=== PATIENT | male | born 1960 | race Caucasian/White ===

== ENCOUNTER 2017-06-22 13:45 | Outpatient (CLI) | payer OTHER ==
[2017-06-22 15:13] LABS: Hematocrit 47.1 % (42.0-52.0); Mean Platelet Volume 9.1 fL (7.4-10.4); Red Blood Cell (RBC) Count 4.89 mill/uL (4.70-6.10); White Blood Cell (WBC) Count 9.4 thou/uL (4.8-10.8)
[2017-06-22 15:19] LABS: Prothrombin Time 13.3 SEC (12.0-14.7)
[2017-06-22 15:20] LABS: PTT 22.6 SEC (22.9-36.1)
== END 2017-06-22 13:46 | disposition home or self-care (01) ==
LOC: LABBT 13:45
PROVIDERS: ATTEND Neurological Surgery
DX: Z01.812 Encounter for preprocedural laboratory examination (principal); M47.16 Other spondylosis with myelopathy, lumbar region; M47.26 Other spondylosis with radiculopathy, lumbar region
CPT/HCPCS: 85027; 85610; 85730; 87081

== ENCOUNTER 2017-06-29 05:38 | Inpatient (IN) | payer OTHER ==
--- NOTE | 2017-06-23 11:59 | HP ---
HISTORY OF PRESENT ILLNESS: Mr. Ackerman returns to our clinic with injections with right low back alannah n and numbness in the right lateral thigh, lopez and top of the foot. He has recently had injections at L4-L5 that helped significantly, but lasted about 6-8 hours only. There was return of the same pain as before. Now there is numbness down the right leg to the later al calf and top of the foot. The right low back pain is the same, with rare pain in the left low ba ck. He is tired of the pain and has been through injections, therapy, medications, activity modific ations that has not given him full relief. MEDICAL HISTORY: Low back pain. PHYSICAL EXAMINATION: HEENT: Normocephalic, atraumatic. Hearing intact. Moist mucous membranes. Trachea midline. No m asses noted. Eyes: Pupils are equal and reactive to light. Extraocular muscles are intact. Scler ae is white, nonicteric. CARDIOVASCULAR: The patient has no distal cyanosis or clubbing. Regular rate and rhythm. RESPIRATORY: The patient is a bilateral symmetric chest rise. Appears to be no shortness breath. NEUROLOGIC: Gait and station are normal. Motor exam; normal strength in the iliopsoas, quadriceps, hamstrings, anterior tibialis, extensor hallucis longus, gastroc and toe flexors. The sensory exam ; loss of sensation in the right. Reflex exam are normal in the patellar and Achilles. No Babinski sign. SPINE: Tender on the L5-S1 facet. The patient has had CT at [facility], MRI and x-rays at [facility]. MRI shows an L4-L5 disk with right lateral recess stenosis and some foraminal disease at L5 root. X -rays; there is no instability. CT shows pseudoarthrosis, L5 transverse process on sacrum on the right side. Lucency in the L5 ku sverse process, no fracture. ASSESSMENT: 1. Spondylolisthesis of the lumbar region without myelopathy or radiculopathy. 2. Lumbar radiculopathy. PLAN: Dr. Fonseca offered a redo L4-L5 laminectomy with extension of laminectomy L5-S1 and TLIF L 5-S1. Informed consent was discussed. We discussed the indication, risks, benefits, expected resul ts from surgery. The risks discussed included, but were not limited to bleeding, infection, CSF ritu k, nerve damage, weakness, incontinence, cauda equina injury, arachnoiditis, paralysis, ventilator d ependence, wheelchair dependence, loss of vision, hardware complications, pulmonary complications of anesthesia or . Long-term complications discussed included, but were not limited to degenerat ion of surrounding disk and future surgery. He understands the risks and is willing to proceed with the surgery.
[2017-06-29] MEDS ORDERED: Sodium Chloride 0.9% 20 ML ONE (06:17)
[2017-06-29] MEDS ORDERED: Bupivacaine/Epinephrine 0.5% 10 ML VIAL ONE (06:17)
[2017-06-29] MEDS ORDERED: Thrombin 5000 UNITS/5 ML VIAL ONE ×2 (06:17→10:05)
[2017-06-29] MEDS ORDERED: Midazolam HCl 2 mg/2 ml Vial ONE (07:04)
[2017-06-29] MEDS ORDERED: Fentanyl 100 MCG/2 ML VIAL ONE ×3 (07:05→14:07)
[2017-06-29] MEDS ORDERED: Lidocaine 1% PF 5 ML VIAL ONE (07:12)
[2017-06-29] MEDS ORDERED: Succinylcholine Chloride 20 MG/ML 10 ml SYRINGE FS ONE (07:12)
[2017-06-29] MEDS ORDERED: Metoclopramide HCl 10 MG/2 ML VIAL ONE (07:12)
[2017-06-29] MEDS ORDERED: Dexamethasone 20 MG/5 ML VIAL ONE (07:12)
[2017-06-29] MEDS ORDERED: Ondansetron HCl/PF 4 MG/2 ML Vial ONE (07:12)
[2017-06-29] MEDS ORDERED: Ketorolac Tromethamine 30 MG/ML VIAL ONE (07:12)
[2017-06-29] MEDS ORDERED: Propofol 200 MG/20 ML VIAL ONE (07:12)
[2017-06-29] MEDS ORDERED: Glycopyrrolate 0.2 MG/ML 5 ML SYRINGE ONE (07:12)
[2017-06-29] MEDS ORDERED: Sodium Chloride 0.9% 10 ML ONE (08:35)
[2017-06-29] MEDS ORDERED: Morphine Sulfate 2 MG/ML SYRINGE SLOW IVP PRN (13:37)
[2017-06-29] MEDS ORDERED: Acetaminophen/Codeine 30-300mg Tablet PO PRN ×2 (13:37)
[2017-06-29] MEDS ORDERED: Milk Of Magnesia 30 ML UDCUP PO PRN (13:37)
[2017-06-29] MEDS ORDERED: Ondansetron HCl/PF 4 MG/2 ML Vial IVP PRN (13:37)
--- NOTE | 2017-06-29 13:40 | OP ---
DATE OF PROCEDURE: 06/29/2017 SURGEON: Jessica Fonseca M.D. SERVICE REPRESENTATIVE: Kevin Manriquez PA-C. PREOPERATIVE INDICATION: Treat pain, prevent neurological deterioration. PREOPERATIVE DIAGNOSES: Prior lumbar surgery, right and left lumbar radiculopathies, painful right L5 on S1 pseudoarthrosis. POSTOPERATIVE DIAGNOSES: Prior lumbar surgery, right and left lumbar radiculopathies, painful right L5 on S1 pseudoarthrosis. PROCEDURES PERFORMED: Reopening lumbar incision, repeat bilateral laminectomy, medial facetectomy, foraminotomy at L4-L5, L5-S1, operating microscope and scar tissue dissection, transforaminal lumbar interbody arthrodesis L5-S1, placement of intervertebral biomechanical device L5-S1, local morseliz ed autograft, morselized Allograft, pedicle screw and zeke instrumentation L5-S1, posterolateral arth rodesis L5-S1. PREOPERATIVE MEDICATION: Ancef 2 grams IV. DRAIN NUMBER: One. DRAIN TYPE: 10 Swiss Michael. OPERATIVE DICTATION: The patient was brought to the operating room. General endotracheal anesthesi a was induced. The patient was positioned prone on the Randall frame with his chest and hips suppor moreno by the appropriate attachments for the Randall frame. Lateral fluoro radiograph was used to ens ure that the previous incision would give us access to the L4, L5 and S1 segments of the lumbosacral spine. The lumbar skin was sterilely prepped and draped. We opened his previous incision with a 1 0 blade knife and controlled bleeding with bipolar and monopolar cautery. We used monopolar cautery to dissect through the subcutaneous tissues to the thoracodorsal fascia. We incised the fascia in the midline and reflected the paraspinal muscles off the spinous process and lamina of L4, L5, and S 1. Lateral fluoro radiograph confirmed the levels upon which we were operating. This dissection in volved reflection of scar tissue in the area of his previous operations. We carried our dissection over the facet joints at L4-L5 and L5-S1 to expose the transverse process of L5 on both sides as wel l as the sacral ala bilaterally. We turned our attention to decompression. We carefully performed a laminectomy at L4-L5 and L5-S1. We widened our laminectomy defect using Ke rrison rongeurs. We brought the operating microscope into the field. Under microscopic magnificati on using microsurgical techniques, we carefully peeled the scar tissue from the lateral confines of the spinal canal loosening attachments between the dura and bone at L4-L5 and L5-S1. We continued d issecting around the thecal sac until we could easily visualize L5 and S1 nerve roots as well as the common thecal sac and decompress these to the point that they were freely mobile across the L4-L5 a nd L5-S1 interspaces. When the decompression secured, we turned our attention to arthrodesis. We widened our facetectomy on the right at L5-S1, giving us access through the foramen into the inte rvertebral disk space. We incised the disk space with an 11 blade knife and removed disk contents u sing curettes and rongeurs. A rectangular shaped bone rasp was used to prepare the endplates for gr afting and measured the height of the interspace. This measured 8 mm. We brought an 8 mm PEEK tai t into the field. We loaded this with demineralized bone matrix and morselized autograft. The auto graft was meticulously prepared on the back table by removing soft tissue attachments from our vanessa ectomy bone, and that bone was then morselized into the demineralized bone matrix as our fusion subs trate. We advanced 8 mm PEEK graft into the interspace under radiographic guidance to the appropria te depth. We then turned our attention to pedicle screw instrumentation. Using bony anatomic landm arks, palpation of the medial portion of the pedicles, and a lateral fluoro radiograph as a guide, kory lennon chose entry points for pedicle screws. We advanced the entry points through the pedicles into the vertebral bodies at L5 and at S1 bilaterally. We tapped the trajectories and then placed 6.5 mm di ameter screws. With the screws in place, we generated a 360 degree image set with our assistance C- arm. The left-sided L5 screw was slightly prominent anterolaterally, given the patient's body habit us, this is the best trajectory we could hope for and we elected to leave it in place. We irrigated copiously with bacitracin irrigation. We used a high-speed drill to decorticate the transverse pro cesses of L5 bilaterally and the sacral ala. Over the decorticated bone, we left demineralized bone matrix and morselized autograft as our posterolateral fusion substrate. We then placed rods in the screw heads and tightened caps over the rods. Using rudnks-pzlfcut-basfrq mechanism, we ensured ad equate tightness. We applied gentle compression across the interspace to keep our interbody device in place during the tightening process. We tunneled a drain inferiorly through a separate stab inci marta. We treated the wound with vancomycin powder and we closed the wound in anatomic layers over t he drain. This was a clean case and no contamination.
[2017-06-29] MEDS ORDERED: Promethazine HCl 25 MG/ML VIAL ONE (14:07)
[2017-06-29] MEDS: Sodium Chloride 0.9% 1,000 ML IV SCH (16:29)
[2017-06-30] MEDS: Sodium Chloride 0.9% 1,000 ML IV SCH ×2 (05:28→11:08)
--- NOTE | 2017-06-30 07:10 | PRG ---
DATE OF SERVICE: 06/30/2017 Mr. Ackerman is 1 day out from decompression fusion in the lumbar spine. We got good decompression fro m L4 through the L5 and S1 nerve roots. All scar tissue was dissected. The pseudoarthrosis has bee n causing a significant amount of pain between the transverse processes of L5 and the sacrum is now fixed. Mr. Ackerman will benefit from physical therapy while here in the hospital and we will keep his drain i n until it dips below our threshold for output so that we can remove it safely. If the drain tapers off significantly today and he is safe for activities of daily living, we can think about discharge in the afternoon.
--- NOTE | 2017-06-30 07:44 | PRG ---
DATE OF SERVICE: 06/30/2017 Mr. Ackerman is a 57-year-old male who is status post 1 day out from a lumbar decompression and fusion. There were no acute events overnight and this morning he is doing well, in no acute distress, sitt ing up. His vital signs have been stable this morning and there are no new neurologic deficits on e xam. He states that the pain in his legs has completely resolved. He still has a significant amoun t of drainage from his lumbar drain and when that tapers off to about 5 mL per hour for a 6 hour per iod the drain could be discontinued. Until that time we him on antibiotics for infection prophylaxi s. We want him to work with physical therapy and ambulate as much as possible today. He can tolera te regular diet and his pain is well controlled pain medication. If there are any further questions, please feel free to contact Neurosurgery.
[2017-06-30] MEDS: Cyclobenzaprine 10 MG TAB PO PRN ×2 (11:12→20:07)
--- NOTE | 2017-07-01 06:30 | PRG ---
DATE OF SERVICE: 07/01/2017 Mr. Ackerman walked in the hallways yesterday about 3 times. He was able make it around the entire loo p. He gets tired after his walk, but he is feeling better than he did before surgery. Drain is ta pered off nicely. My plan is to remove the drain this morning. Continue to work on ambulation and have him discharged from the hospital by lunch time. Follow up arrangements are being made. We went over activity res trictions and wound care.
[2017-07-01 11:24] LABS: Troponin I Less than 0.010 ng/mL (< 0.028)
--- NOTE | 2017-07-01 13:07 | CT ---
HEAD CT NONCONTRAST: INDICATION: Unresponsive episode, possible seizure. FINDINGS: Ventricular system is normal in size. Septum pellucidum and third ventricle are midline. There is no intracranial hemorrhage, mass effect, or midline shift. IMPRESSION: There are no acute intracranial abnormalities. POS: [facility]
[2017-07-01 15:36] LABS: #Eosinphils 0.2 thou/uL (0.0-0.7); #Lymphocytes 2.2 thou/uL (1.20-3.40); #Monocytes 1.2 thou/uL (0.11-0.59); #Neutrophils 8.7 thou/uL (1.40-6.50); %Basophils 0.4 % (0.0-1.0); %Eosinophils 1.3 % (0.0-10.0); %Monocytes 9.5 % (0.0-10.0); Hematocrit 37.8 % (42.0-52.0); Mean Platelet Volume 7.6 fL (7.4-10.4); Red Blood Cell (RBC) Count 3.89 mill/uL (4.70-6.10); White Blood Cell (WBC) Count 12.3 thou/uL (4.8-10.8)
[2017-07-01 15:57] LABS: Anion Gap 11 mmol/L (10-20); BUN (Urea Nitrogen) 9 mg/dL (8.4-25.7); Calc. Creatinine Clearance 0 mL/min (70-130); Calcium 9.1 mg/dL (7.8-10.44); Carbon Dioxide 27 mmol/L (22-29); Chloride 102 mmol/L (98-107); Estimated GFR-MDRD Greater than 90
--- NOTE | 2017-07-01 16:00 | PRG ---
NEUROSURGERY PROGRESS NOTE DATE OF SERVICE: 07/01/2017 SUBJECTIVE: I was called earlier this afternoon that Mr. Ackerman had a syncopal episode. This mornin g, he sat out as his drain pulled and felt lightheadedness. The next thing he remembers there were 20 people in his room checking his blood pressure. He came back quickly. Nursing staff reports howard t he had some bilateral shaking motions that were symmetric in both upper extremities. This is imme diately following the administration of pain medication. IMAGING DATA: EKGs have been done, CT scan of the brain and a consultation was placed to the medica l service. Troponins have been ordered as well. I reviewed the imaging results and the CT brain is normal. The EKG looks relatively normal with no ST changes, some left axis deviation. The cardiac enzymes are negative. ASSESSMENT AND PLAN: We will keep Mr. Ackerman in telemetry overnight. We will watch him until tomorr ow and if the medical team agrees that it is safe to discharge, we will do so then. I will get a chemistry panel and a CBC. I will place a peripheral IV as his prior IV was pulled out accidentally. He gone over home going activity restrictions and wound care and followup arrangemen ts. I anticipate discharge tomorrow.
--- NOTE | 2017-07-01 16:41 | PDOC.PN ---
- Subjective Encounter Start Date: 07/01/17 Encounter Start Time: 16:39 Subjective: post op, fainted sitting in bed - Objective MAR Reviewed: Yes Vital Signs & Weight: Vital Signs (12 hours) Temp Pulse Pulse Resp Resp BP BP 07/01/17 10:10 75 18 103/67 07/01/17 09:02 98.7 F 76 16 07/01/17 07:30 98.7 F 76 16 103/67 Pulse Ox Pulse Ox 07/01/17 10:10 97 07/01/17 09:02 07/01/17 07:30 94 L Weight Weight 7.408 oz I&O: 06/30/17 07/01/17 07/02/17 06:59 06:59 06:59 Intake Total 1200 2160 Output Total 670 260 Balance 530 1900 Result Diagrams: 07/01/17 15:29 07/01/17 15:29 Additional Labs: Accuchecks 07/01/17 10:14 POC Glucose 109 Radiology Reviewed by me: Yes (RSR, IVC defect) Phys Exam - Physical Examination Constitutional: NAD Neck: no JVD Respiratory: clear to auscultation bilateral Cardiovascular: RRR, no significant murmur, gallop Gastrointestinal: soft, non-tender, positive bowel sounds Musculoskeletal: no edema Dx/Plan (1) Post-operative state Code(s): Z98.890 - OTHER SPECIFIED POSTPROCEDURAL STATES Status: Acute (2) Syncope Code(s): R55 - SYNCOPE AND COLLAPSE Status: Acute Qualifiers: Syncope type: vasovagal syncope Qualified Code(s): R55 - Syncope and collapse (3) Intraventricular conduction defect Code(s): I45.4 - NONSPECIFIC INTRAVENTRICULAR BLOCK Status: Acute - Plan no hx of heart disease, etc -: troponin x 3 -: obtain preop EKG, rpt EKG in am, echo. keep in monitored bed overnite * .
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
[2017-07-01 18:36] LABS: Troponin I Less than 0.010 ng/mL (< 0.028)
[2017-07-01] MEDS: Ibuprofen 200 MG TAB PO PRN (19:28)
[2017-07-01 21:18] LABS: Troponin I Less than 0.010 ng/mL (< 0.028)
[2017-07-01 22:01] LABS: Bilirubin Negative (Negative); Blood, Urine Negative (Negative); Glucose, Urine (Dipstick) Negative (Negative); Ketone, Urine Trace mg/dL (Negative); Nitrite Negative (Negative); Protein, Urine (Dipstick) Negative (Neg-Trace)
--- NOTE | 2017-07-02 06:20 | EKG ---
Test Reason : POST CODE GREEN Blood Pressure : / mmHG Vent. Rate : 075 BPM Atrial Rate : 075 BPM P-R Int : 170 ms QRS Dur : 132 ms QT Int : 382 ms P-R-T Axes : 028 -51 079 degrees QTc Int : 426 ms Normal sinus rhythm Left axis deviation Left Anterior Fascicular Block Left ventricular hypertrophy with QRS widening and repolarization abnormality Abnormal ECG No previous ECGs available Confirmed by ELIZABETH VELEZ ([id number]) on 07/02/2017 6:20:21 AM Referred By: ELIO Confirmed By:ELIZABETH VELEZ
[2017-07-02] MEDS ORDERED: traMADol HCl 50 MG TAB PO PRN ×2 (07:01)
[2017-07-02 10:01] LABS: #Eosinphils 0.1 thou/uL (0.0-0.7); #Lymphocytes 1.3 thou/uL (1.20-3.40); #Monocytes 1.4 thou/uL (0.11-0.59); #Neutrophils 11.2 thou/uL (1.40-6.50); %Basophils 0.1 % (0.0-1.0); %Eosinophils 0.5 % (0.0-10.0); %Lymphocytes 9.3 % (21.0-51.0); %Monocytes 9.7 % (0.0-10.0); Hematocrit 38.9 % (42.0-52.0); Mean Platelet Volume 7.9 fL (7.4-10.4); Red Blood Cell (RBC) Count 4.03 mill/uL (4.70-6.10)
[2017-07-02] MEDS: Ibuprofen 200 MG TAB PO PRN (10:08)
--- NOTE | 2017-07-02 10:21 | RAD ---
1 VIEW CHEST: Date: 07/02/17 HISTORY: Postoperative fever. COMPARISON: None. FINDINGS: Normal cardiac silhouette. Pulmonary vessels and hilum are normal. Costophrenic angles are clear. Li near opacity in the right mid lung may represent subsegmental atelectasis. No consolidation or mass. No pneumothorax. Internal fixation hardware in the proximal right humerus is incompletely evaluated . IMPRESSION: Probable scar or atelectasis in the right mid lung. POS: [facility]
[2017-07-02 10:22] LABS: Anion Gap 12 mmol/L (10-20); BUN (Urea Nitrogen) 11 mg/dL (8.4-25.7); Calc. Creatinine Clearance 208 mL/min (70-130); Calcium 9.3 mg/dL (7.8-10.44); Carbon Dioxide 23 mmol/L (22-29); Chloride 101 mmol/L (98-107); Estimated GFR-MDRD Greater than 90
--- NOTE | 2017-07-02 11:22 | PDOC.PN ---
- Subjective Encounter Start Date: 07/02/17 Encounter Start Time: 11:20 Subjective: feels better. no chest pain/SOB/Cough/dysuria/diarrhea -: some soreness at surgical site - Objective MAR Reviewed: Yes Vital Signs & Weight: Vital Signs (12 hours) Temp Pulse Resp BP BP BP Pulse Ox 07/02/17 07:32 100.5 F H 95 18 94 L 07/02/17 07:30 100.5 F H 95 18 117/68 94 L 07/02/17 04:20 98.2 F 84 18 136/68 95 07/02/17 00:45 98.3 F 80 16 120/68 97 Weight Weight 299 lb I&O: 07/01/17 07/02/17 07/03/17 06:59 06:59 06:59 Intake Total 2160 720 Output Total 260 750 Balance 1900 -30 Result Diagrams: 07/02/17 09:52 07/02/17 09:52 Additional Labs: Microbiology 06/22/17 15:06 Mrsa Scrn Axilla,Groin,Nares Nasal Screen MRSA/MSSA (ROBERT) - Final 06/22/17 15:06 Mrsa Scrn Axilla,Groin,Nares MRSA Screen - Final Negative--No MRSA Colonization Negative--No MRSA Colonization Negative--No MRSA Colonization 07/01/17 18:42 Venous blood - Right Arm Blood Culture - Preliminary Specimen has been received and culture in progress. No Growth to date. 07/01/17 18:42 Venous blood - Left Arm Blood Culture - Preliminary Specimen has been received and culture in progress. No Growth to date. Radiology Reviewed by me: Yes (CXr-atelectasis) Phys Exam - Physical Examination Constitutional: NAD HEENT: PERRLA, moist MMs, sclera anicteric, oral pharynx no lesions Neck: no nodes, no JVD, supple, full ROM Respiratory: no wheezing, no rales, no rhonchi, clear to auscultation bilateral Cardiovascular: RRR, no significant murmur Gastrointestinal: soft, non-tender, no distention, positive bowel sounds Musculoskeletal: no edema, pulses present Neurological: non-focal, normal sensation, moves all 4 limbs Psychiatric: normal affect, A&O x 3 Skin: no rash Dx/Plan (1) Fever Code(s): R50.9 - FEVER, UNSPECIFIED Status: Acute Comment: josef atelectasis (2) Post-operative state Code(s): Z98.890 - OTHER SPECIFIED POSTPROCEDURAL STATES Status: Acute Comment: s/p Lumbar laminectomy (3) Syncope Code(s): R55 - SYNCOPE AND COLLAPSE Status: Acute Qualifiers: Syncope type: vasovagal syncope Qualified Code(s): R55 - Syncope and collapse Comment: josef vaso-vagal - Plan DVT proph w/SCDs blood cx negative so far. low grade fever josef d/t atelectasis. -: CXR clear. UA clear. asymptomatic.OK to DC from IM stand point -: discussed w pt. will presribe Keflex empirically as he received Ancef inpt -: F/U w PCP.cont IS.F/U NS * . Review of Systems - Review of Systems Constitutional: negative: Fever, Chills, Sweats, Weakness, Malaise, Other Respiratory: negative: Cough, Dry, Shortness of Breath, Hemoptysis, SOB with Excertion, Pleuritic Pain, Sputum, Wheezing Cardiovascular: negative: Chest Pain, Palpitations, Orthopnea, Paroxysmal Noc. Dyspnea, Edema, Light Headedness, Other Gastrointestinal: negative: Nausea, Vomiting, Abdominal Pain, Diarrhea, Constipation, Melena, Hematochezia, Other Genitourinary: negative: Dysuria, Frequency, Incontinence, Hematuria, Retention , Other Musculoskeletal: negative: Neck Pain, Shoulder Pain, Arm Pain, Back Pain, Hand Pain, Leg Pain, Foot Pain, Other Neurological: negative: Weakness, Numbness, Incoordination, Change in Speech, Confusion, Seizures, Other - Medications/Allergies Allergies/Adverse Reactions: Allergies Allergy/AdvReac Type Severity Reaction Status Date / Time hydrocodone Allergy RESTLESSNESS, Verified 06/22/17 14:22 HYPER Medications: Current Medications Cefazolin Sodium (Ancef) 2 gm SLOW IVP Q8H EDUAR Stop: 07/02/17 13:46 Last Admin: 07/02/17 05:40 Dose: 2 gm Cyclobenzaprine HCl (Flexeril) 10 mg PO Q8H PRN PRN Reason: Muscle Spasm Last Admin: 06/30/17 11:12 Dose: 10 mg Ibuprofen (Motrin) 400 mg PO Q6H PRN PRN Reason: FEVER/PAIN Last Admin: 07/02/17 10:08 Dose: 400 mg Magnesium Hydroxide (Milk Of Magnesium) 30 ml PO Q12H PRN PRN Reason: Constipation Morphine Sulfate (Morphine Sulfate) 2 mg SLOW IVP Q1H PRN PRN Reason: Moderate Breakthrough Pain Morphine Sulfate (Morphine Sulfate) 4 mg SLOW IVP Q1H PRN PRN Reason: Severe Breakthrough Pain Last Admin: 07/02/17 10:09 Dose: 4 mg Ondansetron HCl (Zofran) 4 mg IVP Q6H PRN PRN Reason: Nausea Pantoprazole Sodium (Protonix) 40 mg PO 2100 EDUAR Last Admin: 07/01/17 20:40 Dose: 40 mg Sodium Chloride (Flush - Normal Saline) 10 ml IVF PRN PRN PRN Reason: Saline Flush Last Admin: 07/02/17 05:40 Dose: 10 ml Tramadol HCl (Ultram) 50 mg PO Q4H PRN PRN Reason: Mild Pain (1-3) Tramadol HCl (Ultram) 100 mg PO Q4H PRN PRN Reason: Moderate Pain (4-6)
[2017-07-02 12:21] LABS: ALT (SGPT) 28 U/L (8-55); AST (SGOT) 31 U/L (5-34); Alkaline Phosphatase 49 U/L (40-150); Bilirubin, Total 1.9 mg/dL (0.2-1.2); Globulin 3.4 g/dL (2.4-3.5); Protein, Total 7.1 g/dL (6.0-8.3)
[2017-07-02 12:58] VITALS: BP 120/63; TEMP 98.5
--- NOTE | 2017-07-02 14:57 | DIS ---
Mr. Ackerman was admitted to [facility] on 06/29/[address] Fonseca in the postoperative pe riod following lumbar laminectomy and TLIF. ADMITTING DIAGNOSIS: Lumbar fusion. DISCHARGE DIAGNOSIS: Lumbar fusion. HOSPITAL COURSE: Mr. Ackerman's hospital course was complicated only by a syncopal episode and Code Gr een after impending discharge yesterday. Workup both cardiac and systemic yielded no significant re sults and the patient returned to baseline. He tolerated pain rather well with only IV morphine rar pooja. He proceeded to ambulate well and was ultimately discharged on 07/02/2017 in stable condition with outpatient follow up planned. Home medications sent were Tolvin and Keflex.
--- NOTE | 2017-07-04 17:49 | EKG ---
Test Reason : Blood Pressure : / mmHG Vent. Rate : 096 BPM Atrial Rate : 096 BPM P-R Int : 166 ms QRS Dur : 126 ms QT Int : 348 ms P-R-T Axes : 048 -53 082 degrees QTc Int : 439 ms Sinus rhythm with frequent Premature ventricular complexes Left axis deviation Left ventricular hypertrophy with QRS widening and repolarization abnormality Abnormal ECG When compared with ECG of 01-JUL-2017 10:40, Premature ventricular complexes are now Present Confirmed by ELIZABETH VELEZ ([id number]) on 07/04/2017 5:48:42 PM Referred By: CRYSTAL Confirmed By:ELIZABETH VELEZ
== END 2017-07-02 12:56 | disposition home or self-care (01) | DRG 460 ==
LOC: SURG A 05:38 → SURG B 14:54 → 2NO 07-01 11:09
PROVIDERS: ADMIT Neurological Surgery; ATTEND Neurological Surgery
PROC: 01NB0ZZ Release Lumbar Nerve, Open Approach (ICD-10-PCS; principal; 2017-06-29)
PROC: 0SG30AJ Fusion of Lumbosacral Joint with Interbody Fusion Device, Posterior Approach, Anterior Column, Open Approach (ICD-10-PCS; 2017-06-29)
DX: M43.16 Spondylolisthesis, lumbar region (principal); J98.11 Atelectasis; R55 Syncope and collapse; M54.16 Radiculopathy, lumbar region; I45.4 Nonspecific intraventricular block; Z87.891 Personal history of nicotine dependence
CPT/HCPCS: 36415; 36416; 70450; 71010; 76001; 80048; 80053; 81003; 82553; 84484; 85025; 87040; 87086; 93005; 93010; 93306; A4216; C1713; C1768; G8978-GP-CL; G8979-GP-CJ; J0131; J1100; J1885; J2001; J2250; J2270; J2405; J2550; J2704; J2765; J3010; J3370; J3490

== ENCOUNTER 2017-08-24 13:17 | Outpatient (CLI) | payer OTHER ==
--- NOTE | 2017-08-24 16:56 | RAD ---
LUMBAR SPINE: 08/24/17 Two views. HISTORY: Postop followup. COMPARISON: 11/05/16. Pedicle screws now transfix L5-S1 level. Posterior alignment appears normally maintained. There is lo ss of disc space at L5-S1. Osteophytes at L4-5 are again noted. Mild osteophytes at the other levels again noted. Facet hypertrophy. IMPRESSION: Degenerative and postoperative changes of the lumbar spine as described. POS: SCOTT
== END 2017-08-24 13:18 | disposition home or self-care (01) ==
LOC: TBSIIMAG 13:17
PROVIDERS: ATTEND Neurological Surgery
DX: M47.26 Other spondylosis with radiculopathy, lumbar region (principal)
CPT/HCPCS: 72100

== ENCOUNTER 2017-10-12 15:51 | Emergency (ER) | payer OTHER ==
[2017-10-12] MEDS ORDERED: Ketorolac Tromethamine 60 MG/2 ML VIAL ONE (17:41)
[2017-10-12] MEDS ORDERED: Diazepam 5 MG TAB ONE (17:54)
== END 2017-10-12 18:10 | disposition home or self-care (01) ==
LOC: ERS 15:51
DX: M54.5 Low back pain (principal); K21.9 Gastro-esophageal reflux disease without esophagitis; Z79.899 Other long term (current) drug therapy
CPT/HCPCS: 96372; J1885

== ENCOUNTER 2017-10-20 16:14 | Outpatient (CLI) | payer OTHER | END 2017-10-20 16:15 | disposition home or self-care (01) | LOC: BICRAD 16:14 | PROVIDERS: ATTEND Neurological Surgery | DX: M54.5 Low back pain (principal); M47.816 Spondylosis without myelopathy or radiculopathy, lumbar region; Z98.890 Other specified postprocedural states; M50.021 Cervical disc disorder at C4-C5 level with myelopathy; M50.023 Cervical disc disorder at C6-C7 level with myelopathy; M99.51 Intervertebral disc stenosis of neural canal of cervical region | CPT/HCPCS: 72100 ==

== ENCOUNTER 2017-11-02 09:17 | Outpatient (CLI) | payer OTHER | END 2017-11-02 09:18 | disposition home or self-care (01) | LOC: BICCT 09:17 | PROVIDERS: ATTEND Neurological Surgery | DX: M43.06 Spondylolysis, lumbar region (principal); M48.061 Spinal stenosis, lumbar region without neurogenic claudication; Z98.890 Other specified postprocedural states | CPT/HCPCS: 72100; 72131 ==

== ENCOUNTER 2018-05-23 16:41 | Outpatient (CLI) | payer OTHER ==
[2018-05-23 17:30] LABS: #Basophils 0.1 thou/uL (0.0-0.2); #Eosinphils 0.2 thou/uL (0.0-0.7); #Lymphocytes 2.5 thou/uL (1.20-3.40); #Monocytes 0.8 thou/uL (0.11-0.59); %Basophils 0.7 % (0.0-1.0); %Eosinophils 1.8 % (0.0-10.0); %Lymphocytes 23.7 % (21.0-51.0); %Monocytes 7.2 % (0.0-10.0); %Neutrophils 66.6 % (42.0-75.0); Hemoglobin 15.4 g/dL (14.0-18.0); Mean Corpuscular HGB CONC 34.9 g/dL (32.0-36.0); Mean Corpuscular Hemoglobin 32.7 pg (27.0-31.0); Mean Corpuscular Volume 93.7 fL (78.0-98.0); Mean Platelet Volume 7.5 fL (7.4-10.4); Platelet Count 174 thou/uL (130-400); RBC Distribution Width 12.5 % (11.5-14.5); Red Blood Cell (RBC) Count 4.71 mill/uL (4.70-6.10); White Blood Cell (WBC) Count 10.5 thou/uL (4.8-10.8)
[2018-05-23 17:49] LABS: Anion Gap 15 mmol/L (10-20); BUN (Urea Nitrogen) 12 mg/dL (8.4-25.7); Calc. Creatinine Clearance 0 mL/min (70-130); Calcium 9.8 mg/dL (7.8-10.44); Carbon Dioxide 21 mmol/L (22-29); Chloride 108 mmol/L (98-107); Estimated GFR-MDRD Greater than 90; Glucose 92 mg/dL (70-105); Potassium 4.4 mmol/L (3.5-5.1); Sodium 140 mmol/L (136-145)
--- NOTE | 2018-05-26 16:32 | EKG ---
Test Reason : Blood Pressure : / mmHG Vent. Rate : 066 BPM Atrial Rate : 066 BPM P-R Int : 174 ms QRS Dur : 128 ms QT Int : 408 ms P-R-T Axes : 024 -51 -04 degrees QTc Int : 427 ms Normal sinus rhythm Left ventricular hypertrophy with QRS widening Abnormal ECG Confirmed by DELFINO SCHWARTZ ([id number]) on 05/26/2018 4:31:57 PM Referred By: DUC Confirmed By:DELFINO SCHWARTZ
== END 2018-05-23 16:42 | disposition home or self-care (01) ==
LOC: LABBT 16:41
PROVIDERS: ATTEND Specialist
DX: Z01.818 Encounter for other preprocedural examination (principal); K42.9 Umbilical hernia without obstruction or gangrene
CPT/HCPCS: 80048; 85025; 93005; 93010

== ENCOUNTER 2018-05-27 05:55 | Day surgery (SDC) | payer OTHER ==
[2018-05-23 16:47] VITALS: BMI 37.3
--- NOTE | 2018-05-24 12:12 | HP ---
HISTORY OF PRESENT ILLNESS: David Ackerman is a 58-year-old male, who works in the . He has umb ilical hernia that is bothersome to him. Plan is to repair that using mesh robotically as an outpati ent. He understands the risks and benefits of surgery and consents. ALLERGIES: None. TOBACCO: None. ALCOHOL: Socially. PAST SURGICAL HISTORY: Lumbar surgery x4, 2017 fusion, left arm surgery. PAST MEDICAL HISTORY: Noncontributory. ALLERGIES: None. REVIEW OF SYSTEMS: A 10-point noncontributory. FAMILY HISTORY: Noncontributory. PHYSICAL EXAMINATION: VITAL SIGNS: 283 pounds, 6 feet 1 inch, 119/88, 100, 99. HEAD, EYES, EARS, NOSE, AND THROAT: Unremarkable. LUNGS: Clear to auscultation. CARDIAC: Regular rate and rhythm without murmur, rub, or gallop. ABDOMEN: Soft. Umbilical hernia present, reducible. EXTREMITIES: Unremarkable. No ankle edema. Good pulses. NEUROLOGICAL: Intact. No focal deficits. ASSESSMENT AND PLAN: Umbilical hernia. Plan robotic mesh repair as an outpatient. Risks and benefi ts discussed. He consents.
[2018-05-27] MEDS ORDERED: CEFAZOLIN/Water 2 GM/20 ML SYRINGE ONE (06:24)
[2018-05-27] MEDS ORDERED: Ketorolac Tromethamine 30 MG/ML VIAL ONE (06:24)
[2018-05-27] MEDS ORDERED: Fentanyl 100 MCG/2 ML VIAL ONE (07:12)
[2018-05-27] MEDS ORDERED: Promethazine HCl 25 MG/ML VIAL ONE (07:12)
[2018-05-27] MEDS ORDERED: Midazolam HCl 2 mg/2 ml Vial ONE (07:12)
[2018-05-27] MEDS ORDERED: Bupivacaine HCl 0.5%/Epinephrine 1:200,000/PF 30 ml Vial ONE (08:00)
[2018-05-27] MEDS ORDERED: Bupivacaine/Epinephrine 0.25% 30 ML VIAL ONE (08:18)
[2018-05-27] MEDS ORDERED: ePHEDrine/0.9% NaCl/PF SYRINGE 50 mg/10 ml ONE (11:45)
[2018-05-27] MEDS ORDERED: Dexamethasone 20 MG/5 ML VIAL ONE (11:45)
[2018-05-27] MEDS ORDERED: Ondansetron HCl/PF 4 MG/2 ML Vial ONE (11:45)
[2018-05-27] MEDS ORDERED: PROPOFOL 200 MG/20 ML VIAL ONE (11:45)
[2018-05-27] MEDS ORDERED: Lidocaine 1% PF 5 ML VIAL ONE (11:45)
[2018-05-27] MEDS ORDERED: Glycopyrrolate 0.2 MG/ML 5 ML SYRINGE ONE (11:45)
[2018-05-27] MEDS ORDERED: PHENYLEPHRINE-NS 100 MCG/ML 10 ML SYRINGE ONE (11:45)
[2018-05-27] MEDS ORDERED: HYDROcodone/Acetaminophen 5/325 mg Tablet ONE (12:29)
--- NOTE | 2018-05-31 11:44 | OP ---
DATE OF PROCEDURE: 05/27/2018 PREOPERATIVE DIAGNOSIS: Umbilical hernia. POSTOPERATIVE DIAGNOSIS: Umbilical hernia. PROCEDURE PERFORMED: Robotic umbilical hernia repair with mesh. ANESTHESIA: General. Local 0.5% Marcaine with epinephrine, 30 mL. PROCEDURE IN DETAIL: Patient taken to the operating room under general anesthesia in supine position , incisions were made in the upper abdomen, midline and pneumoperitoneum to 15 mmHg obtained with the Veress needle placing it with an 11 port with the balloon stay. Laparoscope introduced and lateral subcostal incision made. An 8 mm ports placed. Robot was docked and instruments inserted and roboti c, umbilical hernia repair undertaken by freeing the hernia sac from the surrounding tissues, freeing the fascia, freeing the falciform ligament superiorly, skeletonizing the fascia and then reducing pn eumoperitoneum to 10 mmHg and robotically closing the fascia with continuous locking suture, #1 V-Loc . Once this was accomplished, then the mesh was obtained and 8 cm round mesh applied and secured wit h circumferential suture of 2-0 V-Loc suture. Good hemostasis noted. Midline fascial defect from th e 11 mm trocar closed with GraNee needle 0 Vicryl under laparoscopic visualization. Pneumoperitoneum evacuated as good hemostasis and instrument counts were correct. Skin incisions closed with interru pted sutures of 4-0 Monocryl and DermaGlue applied.
== END 2018-05-27 12:30 | disposition home or self-care (01) ==
LOC: SDC 05:55
PROVIDERS: ATTEND Specialist
PROC: 0WUF4JZ Supplement Abdominal Wall with Synthetic Substitute, Percutaneous Endoscopic Approach (ICD-10-PCS; principal; 2018-05-27)
DX: K42.9 Umbilical hernia without obstruction or gangrene (principal); Z79.899 Other long term (current) drug therapy; Z98.1 Arthrodesis status
CPT/HCPCS: C1781; J0131; J0670; J1100; J1885; J2001; J2250; J2405; J2550; J2704; J3010

== ENCOUNTER 2021-06-05 18:30 | Outpatient (CLI) | payer OTHER | END 2021-06-05 18:31 | disposition home or self-care (01) | LOC: SLEEPLAB 18:30 | PROVIDERS: ATTEND Internal Medicine Cardiovascular Disease | DX: G47.33 Obstructive sleep apnea (adult) (pediatric) (principal); R06.83 Snoring; I11.9 Hypertensive heart disease without heart failure; G47.00 Insomnia, unspecified | CPT/HCPCS: 95806 ==

== ENCOUNTER 2022-11-05 09:32 | Outpatient (CLI) | payer BC, OTHER | END 2022-11-05 09:33 | disposition home or self-care (01) | LOC: BICRAD 09:32 | PROVIDERS: ATTEND Neurological Surgery | DX: M47.22 Other spondylosis with radiculopathy, cervical region (principal); M50.10 Cervical disc disorder with radiculopathy, unspecified cervical region | CPT/HCPCS: 72050 ==